=== PATIENT | male | born 1965 | race Caucasian/White ===

== ENCOUNTER 2023-05-13 18:52 | Inpatient (IN) | payer OTHER ==
[2023-05-13 19:05] VITALS: BMI 38.8
[2023-05-13] MEDS ORDERED: VANCOMYCIN HCL 1,500 MG in DEXTROSE 5%-WATER - 500 ML IVPB ONE (21:46)
[2023-05-13 22:45] LABS: BASO % 0.8 % (0-2.0); EOS % 5.8 % (0-4.5); HEMOGLOBIN 12.3 GM/dL (11.7-16.9); LYMPH % 26.2 % (8-40); MCH 27.5 pg (25.7-33.7); MCHC 33.2 g/dl (32.0-35.9); MEAN CELL VOLUME 82.9 fl (80-96); MEAN PLT VOLUME 7.3 fl (7.5-11.1); MONO % 15.1 % (3.8-10.2); NEUT % 52.1 % (42.8-82.8); PLATELET COUNT 97 10^3/uL (134-434); RBC 4.47 M/mm3 (4.00-5.60); RDW 16.1 % (11.9-15.9); WHITE BLOOD COUNT 3.9 K/mm3 (4.0-10.0)
[2023-05-13 22:51] LABS: INR 1.25 (0.83-1.09); PROTHROMBIN TIME (PATIENT) 14.5 SEC (9.7-13.0)
[2023-05-13 22:54] LABS: ACTIVATED PTT 38.3 SECONDS (25.2-36.5)
[2023-05-13 23:13] LABS: POTASSIUM 3.5 mmol/L (3.5-5.1)
[2023-05-13 23:15] LABS: CALCIUM 8.4 mg/dL (8.5-10.1)
[2023-05-13 23:16] LABS: ALBUMIN 2.8 g/dl (3.4-5.0); BLOOD UREA NITROGEN 6.2 mg/dL (7-18)
[2023-05-13 23:19] LABS: CREATININE 0.8 mg/dL (0.55-1.3)
[2023-05-13 23:20] LABS: BILIRUBIN,TOTAL 1.4 mg/dL (0.2-1); TOT PROT 8.1 g/dl (6.4-8.2)
[2023-05-13 23:29] LABS: ERYTHROCYTE SEDIMENTATION RATE 51 mm/hr (0-20)
[2023-05-14] MEDS: VANCOMYCIN PREMIX 1.5 GM 1,500 MG/300 ML BAG IVPB ONE (00:26)
[2023-05-14] MEDS ORDERED: FUROSEMIDE 40 MG/4 ML INJECTABLE VIAL ONE (05:46)
[2023-05-14] MEDS: FUROSEMIDE 40 MG/4 ML INJECTABLE VIAL IVPUSH ONE (05:54)
[2023-05-14] MEDS ORDERED: FUROSEMIDE 40 MG/4 ML INJECTABLE VIAL IVPUSH SCH (06:00)
[2023-05-14] MEDS: FUROSEMIDE 40 MG/4 ML INJECTABLE VIAL IVPUSH SCH (06:28)
[2023-05-14 07:01] LABS: PH,URINE 6.5 (5.0-8.0); URINE APPEARANCE CLEAR; URINE BILIRUBIN NEGATIVE (NEGATIVE); URINE COLOR YELLOW; URINE GLUCOSE (UA) NEGATIVE (NEGATIVE); URINE KETONE NEGATIVE (NEGATIVE); URINE LEUK ESTERASE NEGATIVE (NEGATIVE); URINE NITRITE NEGATIVE (NEGATIVE); URINE PROTEIN NEGATIVE (NEGATIVE)
[2023-05-14 07:03] LABS: OPIATES, URI NEGATIVE (NEGATIVE); URINE BARBITURATES NEGATIVE (NEGATIVE); URINE BENZODIAZEPINES NEGATIVE (NEGATIVE)
[2023-05-14 07:04] LABS: PHENCYCLIDINE,URINE NEGATIVE (NEGATIVE)
[2023-05-14 07:14] LABS: COCAINE, UR NEGATIVE (NEGATIVE); METHADONE, UR POSITIVE (NEGATIVE); URINE AMPHETAMINES NEGATIVE (NEGATIVE)
[2023-05-14 07:46] LABS: POTASSIUM 3.3 mmol/L (3.5-5.1)
[2023-05-14 07:47] LABS: HEMATOCRIT 31.1 % (35.4-49); HEMOGLOBIN 10.4 GM/dL (11.7-16.9); MCH 27.6 pg (25.7-33.7); MCHC 33.5 g/dl (32.0-35.9); MEAN CELL VOLUME 82.5 fl (80-96); MEAN PLT VOLUME 7.9 fl (7.5-11.1); PLATELET COUNT 63 10^3/uL (134-434); RBC 3.76 M/mm3 (4.00-5.60); RDW 16.3 % (11.9-15.9); WHITE BLOOD COUNT 2.5 K/mm3 (4.0-10.0)
[2023-05-14 07:52] LABS: BLOOD UREA NITROGEN 5.9 mg/dL (7-18); CALCIUM 7.4 mg/dL (8.5-10.1)
[2023-05-14 07:53] LABS: CREATININE 0.8 mg/dL (0.55-1.3)
[2023-05-14 07:55] LABS: TOT PROT 6.4 g/dl (6.4-8.2)
[2023-05-14] MEDS ORDERED: POTASSIUM CHLORIDE ORAL LIQUID 20 MEQ/15 ML ONE (09:21)
[2023-05-14] MEDS ORDERED: amLODIPine BESYLATE 5 MG TABLET (FP) ONE (11:09)
[2023-05-14] MEDS: ENOXAPARIN NA (PORCINE) 40 MG/0.4 ML DISP.SYRIN SQ SCH (11:16)
[2023-05-14] MEDS: POTASSIUM CHLORIDE ORAL LIQUID 20 MEQ/15 ML PO ONE (11:16)
[2023-05-14] MEDS: LOSARTAN 50MG/HCTZ 12.5MG 1 TAB PO SCH (11:16)
[2023-05-14] MEDS ORDERED: PIPERACILLIN/TAZOB 3.375 GM 3.375 GM/50 ML BAG IVPB ONE (13:50)
[2023-05-14] MEDS: PIPERACILLIN/TAZOB 3.375 GM 3.375 GM in DEXTROSE 5%-WATER - 50 ML IVPB SCH (13:59)
[2023-05-14 17:51] LABS: HIV INTERPRETATION NEGATIVE (NEGATIVE)
[2023-05-14] MEDS: ACETAMINOPHEN 1000 MG/100 ML BAG IVPB PRN (21:22)
[2023-05-15] MEDS ORDERED: VANCOMYCIN/WATER FOR INJ (PEG) 1,000 MG/200 ML BAG IVPB SCH
[2023-05-15 11:03] LABS: BASO % 0.9 % (0-2.0); EOS % 6.4 % (0-4.5); HEMATOCRIT 35.1 % (35.4-49); HEMOGLOBIN 11.6 GM/dL (11.7-16.9); LYMPH % 31.7 % (8-40); MCH 27.7 pg (25.7-33.7); MEAN CELL VOLUME 83.9 fl (80-96); MEAN PLT VOLUME 7.7 fl (7.5-11.1); MONO % 13.3 % (3.8-10.2); NEUT % 47.7 % (42.8-82.8); PLATELET COUNT 93 10^3/uL (134-434); RBC 4.19 M/mm3 (4.00-5.60); RDW 15.9 % (11.9-15.9)
[2023-05-15 11:15] LABS: POTASSIUM 3.5 mmol/L (3.5-5.1)
[2023-05-15 11:19] LABS: CALCIUM 8.5 mg/dL (8.5-10.1)
[2023-05-15 11:20] LABS: ALBUMIN 2.3 g/dl (3.4-5.0); BLOOD UREA NITROGEN 6.3 mg/dL (7-18); MAGNESIUM 1.5 mg/dL (1.8-2.4)
[2023-05-15 11:23] LABS: CREATININE 0.8 mg/dL (0.55-1.3); PHOSPHOROUS 3.2 mg/dL (2.5-4.9)
[2023-05-15 11:24] LABS: BILIRUBIN,TOTAL 1.4 mg/dL (0.2-1); TOT PROT 6.9 g/dl (6.4-8.2)
[2023-05-15] MEDS ORDERED: VANCOMYCIN 1,000 MG in DEXTROSE 5%-WATER - 250 ML IVPB SCH (12:30)
[2023-05-15] MEDS: MAGNESIUM SULF 50% (8.12 MEQ/2 ML-1 GM VIAL) IVPB ONE (13:17)
[2023-05-15] MEDS: PIPERACILLIN/TAZOB 3.375 GM 3.375 GM in DEXTROSE 5%-WATER - 50 ML IVPB SCH (13:59)
[2023-05-16 11:05] LABS: EOS % 5.9 % (0-4.5); HEMATOCRIT 37.5 % (35.4-49); HEMOGLOBIN 12.5 GM/dL (11.7-16.9); LYMPH % 34.5 % (8-40); MCH 27.8 pg (25.7-33.7); MCHC 33.3 g/dl (32.0-35.9); MEAN CELL VOLUME 83.5 fl (80-96); MEAN PLT VOLUME 7.6 fl (7.5-11.1); MONO % 10.6 % (3.8-10.2); PLATELET COUNT 120 10^3/uL (134-434); RBC 4.49 M/mm3 (4.00-5.60); RDW 16.3 % (11.9-15.9)
[2023-05-16 11:15] VITALS: RESP 18
[2023-05-16 11:35] LABS: POTASSIUM 3.6 mmol/L (3.5-5.1)
[2023-05-16 11:41] LABS: ALBUMIN 2.6 g/dl (3.4-5.0); CALCIUM 8.4 mg/dL (8.5-10.1)
[2023-05-16 11:42] LABS: BLOOD UREA NITROGEN 5.5 mg/dL (7-18); MAGNESIUM 1.7 mg/dL (1.8-2.4)
[2023-05-16 11:44] LABS: PHOSPHOROUS 3.8 mg/dL (2.5-4.9)
[2023-05-16 11:45] LABS: CREATININE 0.8 mg/dL (0.55-1.3)
[2023-05-16 11:46] LABS: BILIRUBIN,TOTAL 1.4 mg/dL (0.2-1)
[2023-05-16] MEDS: PIPERACILLIN/TAZOB 3.375 GM 3.375 GM in DEXTROSE 5%-WATER - 50 ML IVPB SCH (21:21)
[2023-05-17 10:03] LABS: BASO % 0.9 % (0-2.0); EOS % 6.8 % (0-4.5); HEMATOCRIT 37.7 % (35.4-49); HEMOGLOBIN 12.6 GM/dL (11.7-16.9); LYMPH % 39.1 % (8-40); MCHC 33.5 g/dl (32.0-35.9); MEAN CELL VOLUME 83.5 fl (80-96); MEAN PLT VOLUME 7.4 fl (7.5-11.1); MONO % 10.8 % (3.8-10.2); NEUT % 42.4 % (42.8-82.8); PLATELET COUNT 118 10^3/uL (134-434); RBC 4.51 M/mm3 (4.00-5.60); WHITE BLOOD COUNT 3.7 K/mm3 (4.0-10.0)
[2023-05-17 10:41] LABS: POTASSIUM 3.8 mmol/L (3.5-5.1)
[2023-05-17 10:46] LABS: ALBUMIN 2.5 g/dl (3.4-5.0); CALCIUM 8.3 mg/dL (8.5-10.1)
[2023-05-17 10:47] LABS: BLOOD UREA NITROGEN 6.1 mg/dL (7-18)
[2023-05-17 10:49] LABS: CREATININE 0.9 mg/dL (0.55-1.3)
[2023-05-17 10:51] LABS: BILIRUBIN,TOTAL 1.7 mg/dL (0.2-1)
[2023-05-18 10:15] LABS: BASO % 1.1 % (0-2.0); EOS % 5.8 % (0-4.5); HEMATOCRIT 39.8 % (35.4-49); HEMOGLOBIN 13.3 GM/dL (11.7-16.9); LYMPH % 35.5 % (8-40); MCH 27.9 pg (25.7-33.7); MCHC 33.4 g/dl (32.0-35.9); MEAN CELL VOLUME 83.3 fl (80-96); MEAN PLT VOLUME 7.8 fl (7.5-11.1); MONO % 9.6 % (3.8-10.2); PLATELET COUNT 133 10^3/uL (134-434); RBC 4.77 M/mm3 (4.00-5.60); RDW 16.1 % (11.9-15.9); WHITE BLOOD COUNT 4.4 K/mm3 (4.0-10.0)
[2023-05-18 10:37] LABS: POTASSIUM 3.7 mmol/L (3.5-5.1)
[2023-05-18 10:39] LABS: BLOOD UREA NITROGEN 7.2 mg/dL (7-18)
[2023-05-18 10:40] LABS: ALBUMIN 2.7 g/dl (3.4-5.0); CALCIUM 8.8 mg/dL (8.5-10.1)
[2023-05-18 10:44] LABS: CREATININE 0.9 mg/dL (0.55-1.3)
[2023-05-18 10:45] LABS: BILIRUBIN,TOTAL 1.4 mg/dL (0.2-1); TOT PROT 8.5 g/dl (6.4-8.2)
[2023-05-18 14:48] VITALS: BP 135/67; PULSE 75; TEMP 97.9
== END 2023-05-18 15:37 | disposition home or self-care (01) | DRG 383 ==
LOC: JER 18:52 → JERBED 23:47 → J5S 05-14 15:13
PROVIDERS: ADMIT Internal Medicine; ATTEND Internal Medicine
DX: L03.116 Cellulitis of left lower limb (principal); D69.6 Thrombocytopenia, unspecified; I73.9 Peripheral vascular disease, unspecified; I87.2 Venous insufficiency (chronic) (peripheral); D72.819 Decreased white blood cell count, unspecified; F17.210 Nicotine dependence, cigarettes, uncomplicated; F19.10 Other psychoactive substance abuse, uncomplicated; I10 Essential (primary) hypertension; I89.0 Lymphedema, not elsewhere classified; E66.9 Obesity, unspecified; Z68.38 Body mass index [BMI] 38.0-38.9, adult
CPT/HCPCS: 36415; 71045-TC-FY; 73590-TC-LT-FY; 76705-TC; 80053; 80307; 81003; 83036; 83735; 83880; 84100; 85025; 85027; 85610; 85651; 85730; 86140; 86850; 86900; 86901; 87040; 87086; 87340; 87389; 87517; 87522; 93306-TC; 93970-TC; 99285-25; G0480; J0131